=== PATIENT | female | born 1935 | race Caucasian/White ===

== ENCOUNTER → 2017-01-30 | Outpatient (CLI) | payer MEDICARE, OTHER ==
[~2017-01-30] MED LIST: AMLO5TAB66 PO; CALC-494 PO; CHOL10003 PO; FISH1CAP29 PO; GABA300T23 PO; LOSA100T7 PO; OMEP20TA11 PO
== END ==
LOC: WC.BC 11:02
DX: Z12.31 Encounter for screening mammogram for malignant neoplasm of breast (principal); Z80.3 Family history of malignant neoplasm of breast
CPT/HCPCS: 77063; G0202